=== PATIENT | male | born 1975 | race Caucasian/White ===

== ENCOUNTER → 2023-04-11 | Outpatient (CLI) | payer OTHER, SELFPAY ==
--- NOTE | 2023-04-11 14:10 | RAD_ITS ---
INDICATION: PAIN RADIATING INTO RIGHT KNEE S/P LIFTING DAD EXAMINATION/TECHNIQUE: X-RAY - XR Spine Lumbar 2 or 3 Views COMPARISON: No comparison. FINDINGS: 2 views of the lumbar spine. BONES: Normal anatomic alignment without evidence of fracture or subluxation. 3 cm opacity overlying left iliac wing, to include possible bone lesion.. DISCS/JOINTS: No significant degenerative change. SOFT TISSUES: Unremarkable. RAD/Lumbar Spine 2 or 3 Views IMPRESSION: Unremarkable lumbar spine. If there is persistent clinical concern for spine fracture and this is a trauma patient, recommend dedicated lumbar spine CT. Possible 3 cm left iliac sclerotic bone lesion. Recommend comparison with previous to document stability. Electronically Signed: Fabien Patrick MD at 4:27 EDT ,
== END | disposition home or self-care (01) ==
LOC: RAD 14:07
PROVIDERS: PCP Family Medicine; Referring Provider Anesthesiology Pain Medicine; Visit Provider Anesthesiology Pain Medicine
DX: M54.50 Low back pain, unspecified (principal)
CPT/HCPCS: 72100

== ENCOUNTER → 2023-04-23 | Outpatient (CLI) | payer OTHER, SELFPAY ==
--- NOTE | 2023-04-23 07:28 | MRI_ITS ---
MRI lumbar spine routine protocol. Sagittal T1, T2, STIR. Axial T1 and T2-weighted imaging. FINDINGS: The conus medullaris terminates at the L1/L2 level. No abnormal distal cord signal is appreciated. Marrow is mildly heterogeneous without focal aggressive osseous lesion. Lumbar spine disc height overall is relatively preserved. T12/L1: Slight disc bulge. Bilateral facet disease. There is no significant central canal stenosis or definitive foraminal narrowing. L1/L2: No significant disc bulge. Moderate facet disease and ligamentum flavum disease without significant central canal stenosis or foraminal narrowing identified. L2/L3: Mild broad-based bulge with ligamentum flavum and facet degenerative change. No significant central canal stenosis. Mild foraminal narrowing right greater than left. L3/L4: Mild broad-based bulge with ligamentum flavum and facet degenerative change. No significant central canal stenosis. Mild to moderate left and mild right-sided foraminal and lateral recess narrowing. L4/L5: Mild broad-based bulge and ligamentum flavum and facet degenerative change. There is at least moderate bilateral foraminal narrowing right greater than left. L5/S1: Mild broad-based bulge central protrusion component which extends into the epidural fat space. Bilateral facet disease. Mild bilateral foraminal narrowing. Paraspinal muscle signal intensity is within normal limits. Visualized portions of the retroperitoneum show no acute abnormality. MRI/Spine Lumbar (Routine) IMPRESSION: Lumbar spine degenerative change as above. Foraminal narrowing is probably most significant at L4/L5 left greater than right. No high-grade central canal stenosis. Electronically Signed: Jamel Marsh MD at 22:19 EDT ,
== END | disposition home or self-care (01) ==
PROVIDERS: PCP Family Medicine; Referring Provider Anesthesiology Pain Medicine; Visit Provider Anesthesiology Pain Medicine
DX: M54.16 Radiculopathy, lumbar region (principal)
CPT/HCPCS: 72148